=== PATIENT | female | born 1995 | race African-American/Black ===

== ENCOUNTER 2020-04-02 15:18 | Emergency (ER) | payer BC, SELFPAY ==
[2020-04-02 15:18] VITALS: BP 125/72; PULSE 102; RESP 20; TEMP 36.9; O2SAT 100
--- NOTE | 2020-04-02 16:07 | ED.FEMALEGU ---
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 Stated complaint: pelvic pain Time Seen by Provider: 04/02/20 15:55 Source: patient Mode of arrival: ambulatory Limitations: no limitations History of Present Illness HPI Narrative: Patient is a 24-year-old female who presents to emergency department for evaluation of pelvic pain bilaterally that began last night noting aching pain to the bilateral adnexa worse with activity with some associated nausea and had similar occurrence in the past seeing her specialist about this patient had been treated for bacterial vaginosis and yeast infection and notes no vaginal complaints at this time does note frequency of urination and some low back pain. Patient denies any URI symptoms or other complaints presents per private vehicle and has not taken anything for her symptoms Related Data Allergies Allergy/AdvReac Type Severity Reaction Status Date / Time ibuprofen Allergy Mild Other Verified 10/17/17 02:55 Review of Systems Review of Systems: All systems reviewed & are unremarkable except as noted in HPI and below PMFSH Social History Social History (Updated 04/02/20 @ 16:09 by Vickey Casas PA-C) Smoking status: Never smoker Gender identity (if verbalized by the patient): Female Exam Narrative: Exam Narrative: GENERAL: Well-appearing, obese, and in no acute distress. HEAD: Normocephalic, atraumatic. EYES: PERRLA and EOMI. ENT: Nares clear, no rhinorrhea or epistaxis. Mucous membranes moist. CHEST: Clear to auscultation. No respiratory distress. No wheezes rales or rhonchi HEART: Regular rate and rhythm. No murmur heard. Normal peripheral pulses. ABDOMEN: Soft, pain in the lower pelvic region on palpation, nondistended EXTREMITIES: Normal range of motion. No edema. SKIN: Warm, dry, no rash. NEURO: No focal deficits. Alert and oriented x3. PSYCH: Normal mood and affect. Course Course Emergency Course: Patient medicated in the emergency department aware of case findings treatment plan and diagnosis agreeing to treatment plan and will follow with gynecology Vital Signs Vital signs: Vital Signs Temperature 98.5 F 04/02/20 15:18 Pulse Rate 102 H 04/02/20 15:18 Respiratory Rate 20 04/02/20 15:18 Blood Pressure 125/72 04/02/20 15:18 Pulse Oximetry 100 04/02/20 15:18 Temperature 98.5 F 04/02/20 15:18 Pulse Rate 102 H 04/02/20 15:18 Respiratory Rate 20 04/02/20 15:18 Blood Pressure 125/72 04/02/20 15:18 Pulse Oximetry 100 04/02/20 15:18 MDM - Female Genitourinary MDM Narrative Medical decision making narrative: Patient aware of case findings treatment plan and diagnosis agreeing to follow with gynecology patient is afebrile nontoxic-appearing no distress no high risk changes in the blood work. Patient felt appropriate for outpatient reevaluation agreeing to follow-up as directed Lab Data Result diagrams: 04/02/20 16:27 04/02/20 16:27 Labs: Lab Results 04/02/20 04/02/20 04/02/20 Range/Units 16:27 16:27 16:29 WBC 9.5 (4.5-10.0) K/mm3 RBC 5.47 H (4.2-5.4) M/mm3 Hgb 10.0 L (12.0-15.0) g/dL Hct 35.8 L (37.0-47.0) % MCV 65.4 L (80-100) fl MCH 18.3 L (26-34) pg MCHC 27.9 L (32-36) g/dl RDW 22.2 H (11.5-14.5) % Plt Count 300 (150-375) k/mm3 MPV TNP Immature Gran % (Auto) 0.1 (0-0.5) % Neut % (Auto) 62.9 (45.5-73.1) % Lymph % (Auto) 26.1 (18.3-44.2) % Hancock % (Auto) 9.5 H (2.6-8.5) % Eos % (Auto) 1.2 (0-4.4) % Baso % (Auto) 0.2 (0.2-1.2) % Lymph # (Auto) 2.47 (0.9-3.2) K/mm3 Hancock # (Auto) 0.9 H (0.1-0.6) K/mm3 Eos # (Auto) 0.1 (0-0.3) K/mm3 Baso # (Auto) 0.0 (0.0-0.1) K/mm3 Abs Immat Gran (auto) 0.01 (0.00-0.031) K/mm3 Absolute Neuts (auto) 6.0 (1.3-6.7) K/mm3 Absolute Nucleated RBC 0.0 (0.0-0.012) K/mm3 Nucleated RBC % 0.0 (0.0-0.2) % Platelet Estimate Adequate (Adequate) %
[2020-04-02] MEDS: SODIUM CHLORIDE 0.9% IV 1,000 ML 999 ML IV CONT (16:25)
[2020-04-02 16:37] LABS: Basophils Percent Auto 0.2 % (0.2-1.2); Eosinophils Absolute Auto 0.1 K/mm3 (0-0.3); Eosinophils Percent Auto 1.2 % (0-4.4); Hematocrit 35.8 % (37.0-47.0); Immature Granulocyte Absolute 0.01 K/mm3 (0.00-0.031); Immature Granulocyte Percent A 0.1 % (0-0.5); Immature Platelet Fraction Pct 6.6 % (0.9-11.2); Lymphocytes Absolute Auto 2.47 K/mm3 (0.9-3.2); Lymphocytes Percent Auto 26.1 % (18.3-44.2); Mean Corpuscular HGB Conc 27.9 g/dl (32-36); Mean Corpuscular Hemoglobin 18.3 pg (26-34); Mean Corpuscular Volume 65.4 fl (80-100); Monocytes Absolute Auto 0.9 K/mm3 (0.1-0.6); Monocytes Percent Auto 9.5 % (2.6-8.5); Neutrophils Percent Auto 62.9 % (45.5-73.1); Platelet Count Result 300 k/mm3 (150-375); Red Blood Count 5.47 M/mm3 (4.2-5.4); Red Cell Distribution Width 22.2 % (11.5-14.5); White Blood Count 9.5 K/mm3 (4.5-10.0)
[2020-04-02 16:39] LABS: Add Urine Microscopic? YES; Appearance Urine Cloudy (Clear); Bacteria Urine Trace /hpf; Bilirubin Urine Negative (Negative); Blood Urine Negative (Negative); Color Urine Yellow (Yellow); Glucose Urine UA Negative (Negative); Ketones Urine Negative (Negative); Leukocyte Esterase Ur Negative LEU/UL (Negative); Mucus Urine Moderate /lpf; Nitrate Urine Negative (Negative); Protein Urine Negative (Negative); RBC Urine 0-2 /hpf (0-2); Specific Grav Ur 1.028 (1.001-1.035); Squamous Epithelial Cell Urine Many /hpf (Few); Urobilinogen Urine Negative mg/dL (<2.0); WBC Urine 0-3 /hpf
[2020-04-02 16:47] LABS: Alanine Aminotransferase 14 U/L (4-35); Alkaline Phosphatase 72 U/L (38-126); Anion Gap 9 mmol/L (8-16); Aspartate Amino Transferase 20 U/L (14-36); Bilirubin,Total 0.2 mg/dL (0.2-1.3); Blood Urea Nitrogen 12 mg/dL (7-17); Calcium 9.5 mg/dL (8.4-10.2); Carbon Dioxide 25 mmol/L (22-30); Chloride 103 mmol/L (98-107); Estimated CRCL calculation 147 ml/min; Estimated Glomerular Filt Rate > 60; Glucose 99 mg/dL (65-105); Potassium 3.9 mmol/L (3.4-5.0); Sodium 137 mmol/L (137-145)
[2020-04-02 16:52] LABS: Anisocytosis 3+ (NORMAL); Hypochromasia 1+ (NORMAL); Platelet Estimate Adequate (Adequate)
[2020-04-02 17:50] VITALS: BP 124/67; PULSE 89; RESP 14; O2SAT 99
== END 2020-04-02 17:56 | disposition home or self-care (01) ==
PROVIDERS: Emergency Medicine Emergency Medical Services; Emergency Provider Emergency Medicine
DX: R10.2 Pelvic and perineal pain (principal)
CPT/HCPCS: 36415; 80053; 81001; 85025; 85055; 96361; 96365; 99284; J0131; J7030

== ENCOUNTER 2020-05-07 14:52 | Emergency (ER) | payer BC, SELFPAY ==
[2020-05-07 15:07] VITALS: BP 146/116; PULSE 85; RESP 16; TEMP 36.1; O2SAT 100
[2020-05-07 15:40] VITALS: BP 118/72; PULSE 70
[2020-05-07 15:41] VITALS: BP 116/71; PULSE 80
[2020-05-07 15:42] VITALS: BP 113/57; PULSE 89
--- NOTE | 2020-05-07 15:45 | ED.FEMALEGU ---
HPI - Female Genitourinary General Chief complaint: Vaginal Bleeding Stated complaint: poss preg/vb Time Seen by Provider: 05/07/20 15:05 History of Present Illness HPI Narrative: Patient is a 24-year-old female who presents ER with vaginal bleeding. Patient's LMP was 1 month ago. She began having vaginal bleeding 2 days ago and she reports it is heavier than normal. She has had large clots come out which is not usual for her but she has been bleeding persistently through pads every 10 minutes. No lightheadedness or lower abdominal pain. No chest pain or shortness of breath. She does report taking a test 2 weeks ago and it had a very faint line on it. She took no additional test. Additionally patient had a recent ultrasound in the last month that showed a large amount of fibroids within her uterus. She reports she does not use control and does have unprotected sex. No vaginal discharge. Patient also reports shortly before starting her period she had an episode of extreme dizziness is associated with nausea and vomiting. That has since slowed down and not recurred. Related Data Home Medications Medication Instructions Recorded Confirmed No Home Medications 05/07/20 05/07/20 Allergies Allergy/AdvReac Type Severity Reaction Status Date / Time ibuprofen Allergy Mild Other Verified 05/07/20 15:32 Review of Systems Review of Systems: All systems reviewed & are unremarkable except as noted in HPI and below ENT: Reports dizziness, Denies nasal congestion and Denies sore throat Gastrointestinal: Gastrointestinal: Denies abdominal pain, Denies diarrhea, Reports nausea and Reports vomiting Genitourinary: Genitourinary: Reports abnormal vaginal bleeding, Denies nocturia, Denies dysuria and Denies vaginal discharge [facility] Past Medical History Medical History (Updated 05/07/20 @ 16:55 by George Caputo MD) Polycystic ovarian syndrome Uterine fibroid Surgical History Surgical History (Updated 05/07/20 @ 15:51 by George Caputo MD) No history of previous surgery Social History Social History (Updated 04/02/20 @ 16:09 by Vickey Casas PA-C) Smoking status: Never smoker Gender identity (if verbalized by the patient): Female Exam Narrative: Exam Narrative: GENERAL: Well-appearing, obese, and in no acute distress. HEAD: Normocephalic, atraumatic. CHEST: Clear to auscultation. No respiratory distress. HEART: Regular rate and rhythm. Normal peripheral pulses. ABDOMEN: Soft, nontender, nondistended. Pelvic: Normal external genitalia. Small amount of dark blood within the vaginal vault without large clot. Cervix normal appearance without persistent oozing/bleeding. EXTREMITIES: Normal range of motion. No edema. NEURO: Alert and oriented x3. PSYCH: Normal mood and affect. Course Course Emergency Course: Patient given IV fluid. Encouraged follow-up with primary training assistant. Should take ibuprofen 3 times daily and also start iron supplementation. Vital Signs Vital signs: Vital Signs Temperature 96.9 F L 05/07/20 15:07 Pulse Rate 85 05/07/20 15:07 Respiratory Rate 16 05/07/20 15:07 Blood Pressure 146/116 H 05/07/20 15:07 Pulse Oximetry 100 05/07/20 15:07 Temperature 96.9 F L 05/07/20 15:07 Pulse Rate 89 05/07/20 15:42 Respiratory Rate 16 05/07/20 15:07 Blood Pressure 113/57 L 05/07/20 15:42 Pulse Oximetry 100 05/07/20 15:07 MDM - Female Genitourinary Lab Data Result diagrams: 05/07/20 15:51 05/07/20 15:51 Labs: Lab Results 05/07/20 05/07/20 Range/Units 15:51 15:51 WBC 7.9 (4.5-10.0) K/mm3 RBC 5.13 (4.2-5.4) M/mm3 Hgb 9.1 L (12.0-15.0) g/dL Hct 33.1 L (37.0-47.0) % MCV 64.5 L (80-100) fl MCH 17.7 L (26-34) pg MCHC 27.5 L (32-36) g/dl RDW 21.1 H (11.5-14.5) % Plt Count 325 (150-375) k/mm3 MPV Not Reportable Immature Gran % (Auto) 0.6 H (0-0.5) %
[2020-05-07 16:00] LABS: Basophils Percent Auto 0.4 % (0.2-1.2); Eosinophils Absolute Auto 0.1 K/mm3 (0-0.3); Eosinophils Percent Auto 1.5 % (0-4.4); Hematocrit 33.1 % (37.0-47.0); Hemoglobin 9.1 g/dL (12.0-15.0); Immature Granulocyte Absolute 0.05 K/mm3 (0.00-0.031); Immature Granulocyte Percent A 0.6 % (0-0.5); Immature Platelet Fraction Pct 5.4 % (0.9-11.2); Lymphocytes Absolute Auto 2.22 K/mm3 (0.9-3.2); Mean Corpuscular HGB Conc 27.5 g/dl (32-36); Mean Corpuscular Hemoglobin 17.7 pg (26-34); Mean Corpuscular Volume 64.5 fl (80-100); Monocytes Absolute Auto 0.7 K/mm3 (0.1-0.6); Monocytes Percent Auto 9.3 % (2.6-8.5); Neutrophils Absolute Auto 4.8 K/mm3 (1.3-6.7); Neutrophils Percent Auto 60.2 % (45.5-73.1); Platelet Count Result 325 k/mm3 (150-375); Red Blood Count 5.13 M/mm3 (4.2-5.4); Red Cell Distribution Width 21.1 % (11.5-14.5); White Blood Count 7.9 K/mm3 (4.5-10.0)
[2020-05-07 16:10] LABS: Anion Gap 5 mmol/L (8-16); Blood Urea Nitrogen 10 mg/dL (7-17); Calcium 8.7 mg/dL (8.4-10.2); Carbon Dioxide 26 mmol/L (22-30); Chloride 105 mmol/L (98-107); Estimated CRCL calculation 166 ml/min; Estimated Glomerular Filt Rate > 60; Glucose 84 mg/dL (65-105); Sodium 136 mmol/L (137-145)
[2020-05-07 16:14] LABS: Platelet Estimate Adequate (Adequate)
[2020-05-07 16:15] LABS: Anisocytosis 2+ (NORMAL); Hypochromasia 2+ (NORMAL)
--- NOTE | 2020-05-07 16:45 | PC.NURSE ---
Dr. Caputo at bedside for pelvic exam with this RN in attendance. Pt tolerated procedure well with minimal bleeding or pain.
[2020-05-07] MEDS: SODIUM CHLORIDE 0.9% IV 1,000 ML 999 ML IV CONT (16:53)
== END 2020-05-07 17:27 | disposition home or self-care (01) ==
PROVIDERS: Emergency Provider Emergency Medicine; PCP Internal Medicine Gastroenterology
DX: N92.0 Excessive and frequent menstruation with regular cycle (principal); E28.2 Polycystic ovarian syndrome; D25.9 Leiomyoma of uterus, unspecified
CPT/HCPCS: 36415; 80048; 81025; 85025; 85055; 96360; 99283; J7030

== ENCOUNTER 2020-09-10 02:20 | Emergency (ER) | payer BC, SELFPAY ==
[2020-09-10 02:26] VITALS: PULSE 110; RESP 20; TEMP 36.7; O2SAT 100
[2020-09-10 02:39] VITALS: BP 130/88
--- NOTE | 2020-09-10 02:55 | ED.URI ---
HPI - URI/Sore Throat General Chief Complaint: Dental/Oral Stated Complaint: my throat has a lump in it. i think it's a rxn Time Seen by Provider: 09/10/20 02:33 Source: patient Mode of arrival: ambulatory Limitations: no limitations History of Present Illness HPI Narrative: This patient is a 25 year old female who presents for evaluation of throat pain. She states this morning she noticed a tinkle in her throat. Tonight prior to arrival she reports she starting having some discomfort with swallowing , and she noticed some white spots on throat. She denies fever, chills, nausea, vomiting, or cough. She denies runny nose or congestion. Related Data Allergies Allergy/AdvReac Type Severity Reaction Status Date / Time No Known Allergies Allergy Verified 09/10/20 02:31 Review of Systems Review of Systems: All systems reviewed & are unremarkable except as noted in HPI and below PMFSH Past Medical History Medical History (Updated 09/10/20 @ 03:58 by Valerie Rodriguez MD) Polycystic ovarian syndrome Uterine fibroid Surgical History Surgical History (Updated 05/07/20 @ 15:51 by George Caputo MD) No history of previous surgery Social History Social History (Updated 04/02/20 @ 16:09 by Vickey Casas PA-C) Smoking status: Never smoker Gender identity (if verbalized by the patient): Female Exam Const: General: no acute distress and alert Orientation/consciousness: patient oriented x3 HENMT: Head: normocephalic and atraumatic Ears: external ears normal and TM's normal bilaterally General nose exam: No nasal polyps present Face and sinus: face symmetric Mouth: Yes lip normal, Yes tongue normal and Yes moist mucous membranes Throat: uvula midline and abnormal tonsil bilateral erythema and exudates Eyes: EOM: EOMs intact bilaterally Neck: Neck: normal visual inspection Chest: Chest palpation & inspection: normal inspection of the chest Resp: Effort & Inspection: normal respiratory effort and no retractions Auscultation: clear to auscultation bilaterally Cardio: Rate: regular rate Rhythm: regular rhythm Heart sounds: no murmurs GI: GI Palp: Yes Soft to palpation, No Tenderness to palpation present (GI) and No Guarding due to palpation present (GI) Auscultation: normal bowel sounds Skin: General skin exam: normal color Rashes: no rashes Neuro: General: patient oriented x3 and moves all extremities Psych: Mental Status: mental status grossly normal Affect: normal affect Course Reevaluation(s) Reevaluation #1: I have discussed with patient that test are negative. She did have exudates mild erythema and swelling. Uvula is midline and normal Date: 09/10/20 Time: 03:43 Vital Signs Vital signs: Vital Signs Temperature 98.1 F 09/10/20 02:26 Pulse Rate 110 H 09/10/20 02:26 Respiratory Rate 20 09/10/20 02:26 Pulse Oximetry 100 09/10/20 02:26 Temperature 98.1 F 09/10/20 02:26 Pulse Rate 110 H 09/10/20 02:26 Respiratory Rate 20 09/10/20 02:26 Blood Pressure 130/88 09/10/20 02:39 Pulse Oximetry 100 09/10/20 02:26 MDM - URI/Sore Throat Lab Data Labs: Lab Results 09/10/20 Range/Units 03:06 Monoscreen Negative (Negative) Strep Screen Presumptive Negative *(Reference Range: Negative)* Discharge Plan Discharge Clinical Impression: Acute tonsillitis Patient Disposition: Home, Self-Care Condition: Stable Instructions: Antibiotic Form, Tonsillitis (ED) Additional Instructions: REturn to ER if your symptoms worsen. Prescriptions: New azithromycin 250 mg tablet See Rx Instructions .ROUTE .COMPLEX Qty: 6 RF: 0 ibuprofen 600 mg tablet 600 mg PO Q6H PRN (Reason: pain) Qty: 14 RF: 0 No Action ferrous sulfate 325 mg (65 mg iron) tablet 325 mg PO DAILY Qty: 30 RF: 0 Follow-up/Referrals: Jcarlos,Lawson Luciano MD [Primary Care Provider]
[2020-09-10] MEDS: IBUPROFEN 400 MG TABLET 800 MG PO (03:01)
[2020-09-10 03:38] LABS: Monoscreen Negative (Negative); Negative Monotest Control Negative (Negative); Positive Monotest Control Positive (Positive)
[2020-09-10] MEDS: DEXAMETHASONE SOD PHOS INJ 4 MG/ML VIAL 10 MG IM (03:48)
== END 2020-09-10 04:09 | disposition home or self-care (01) ==
PROVIDERS: Emergency Provider General Practice; PCP Internal Medicine Gastroenterology
DX: J03.90 Acute tonsillitis, unspecified (principal); E28.2 Polycystic ovarian syndrome
CPT/HCPCS: 36415; 86308; 87081; 87880; 96372; 99283; A9270; J1100

== ENCOUNTER 2020-10-29 06:31 | Emergency (ER) | payer BC, SELFPAY ==
[2020-10-29 06:40] VITALS: BP 139/78; PULSE 101; RESP 16; TEMP 36.9; O2SAT 100
--- NOTE | 2020-10-29 06:45 | ED.GENADULT ---
HPI - General Adult General Chief complaint: Dental/Oral Stated complaint: Sore throat, white patches Time Seen by Provider: 10/29/20 06:43 History of Present Illness HPI narrative: Patient is a 25-year-old female who presents ER with sore throat. Ongoing for the last day. No fevers chills or sweats. No difficulty breathing or swallowing. Noticed patches on her tonsils. Had similar symptoms in August. Swab was negative for strep at that time and culture did not grow out. She did however receive some azithromycin. Related Data Allergies Allergy/AdvReac Type Severity Reaction Status Date / Time No Known Allergies Allergy Verified 09/10/20 02:31 Review of Systems Constitutional: Constitutional: Denies chills, Denies fever(s) and Denies weakness ENT: Denies dysphagia, Denies nasal congestion and Reports sore throat Respiratory: Respiratory: Denies cough and Denies dyspnea PMFSH Past Medical History Medical History (Updated 10/29/20 @ 06:56 by George Caputo MD) Polycystic ovarian syndrome Uterine fibroid Surgical History Surgical History (Updated 05/07/20 @ 15:51 by George Caputo MD) No history of previous surgery Social History Social History (Updated 04/02/20 @ 16:09 by Vickey Casas PA-C) Smoking status: Never smoker Gender identity (if verbalized by the patient): Female Exam Narrative: Exam Narrative: GENERAL: Well-appearing, well-nourished, and in no acute distress. HEAD: Normocephalic, atraumatic. ENT: Mucous membranes moist. Mild pharyngeal erythema with 2+ tonsils with exudates. Uvula midline and nonedematous. NECK: Small lymphadenopathy left anterior cervical chain is mildly tender. NEURO: Alert and oriented x3. PSYCH: Normal mood and affect. Course Course Emergency Course: strep negative. viral tonsillitis. d/c. Medical Decision Making Lab Data Labs: Strep Screen Presumptive Negative *(Reference Range: Negative)* Discharge Plan Discharge Clinical Impression: Acute viral tonsillitis Patient Disposition: Home, Self-Care Condition: Stable Instructions: Tonsillitis (ED) Additional Instructions: Return to the ER if you cannot breathe, you cannot swallow, you have fever over 100.4 ?F, you have additional concerns. Ear infections are likely due to a viral illness and will clear with time. Purchase [id number] lozenges for sore throat. Prescriptions: No Action ferrous sulfate 325 mg (65 mg iron) tablet 325 mg PO DAILY Qty: 30 RF: 0 azithromycin 250 mg tablet See Rx Instructions .ROUTE .COMPLEX Qty: 6 RF: 0 ibuprofen 600 mg tablet 600 mg PO Q6H PRN (Reason: pain) Qty: 14 RF: 0 Follow-up/Referrals: Jcarlos,Lawson Luciano MD [Primary Care Provider] - 1 Week
[2020-10-29 07:09] VITALS: BP 130/74; PULSE 88; RESP 18; O2SAT 100
== END 2020-10-29 07:14 | disposition home or self-care (01) ==
LOC: ANHED 06:57
PROVIDERS: Emergency Provider Emergency Medicine; PCP Internal Medicine Gastroenterology
DX: J03.90 Acute tonsillitis, unspecified (principal); E28.2 Polycystic ovarian syndrome
CPT/HCPCS: 87081; 87880; 99283

== ENCOUNTER 2020-11-25 22:30 | Emergency (ER) | payer BC, SELFPAY ==
--- NOTE | ~2020-11-25 | CT_ITS ---
EXAMINATION: CT abdomen pelvis w con DATE: 11/26/2020 01:05 INDICATION: Upper abdominal pain TECHNIQUE: Computed tomography (CT) of the abdomen and pelvis was performed without intravenous contr ast. Automated exposure control and iterative reconstruction technique were employed. Exam dose: 199 0.01 mGy-cm total exam DLP. COMPARISON: None. FINDINGS: The lung bases are clear. Heart size is normal. No pericardial or pleural effusion. No hepatic, splenic, pancreatic, and adrenal or renal space-occupying mass lesion. No bile duct or pa ncreatic duct dilatation. The gallbladder is contracted. No urinary tract calculus or hydroureteronephrosis. Enlarged lobular uterus consistent with fibroid change. The urinary bladder is unremarkable. Normal caliber of the abdominal aorta. No intraperitoneal or retroperitoneal or pelvic mass lesion or adenopathy or ascites. Normal appendix. No bowel obstruction. Included skeletal structures are unremarkable. IMPRESSION: Enlarged fibroid uterus Normal appendix Reviewed, dictated and finalized at [facility] Reviewed, dictated and finalized at [facility].
[2020-11-25 22:51] VITALS: BP 144/88; PULSE 120; RESP 20; TEMP 36.2; O2SAT 100
[2020-11-25 23:17] LABS: Basophils Percent Auto 0.2 % (0.2-1.2); Eosinophils Absolute Auto 0.1 K/mm3 (0-0.3); Eosinophils Percent Auto 1.3 % (0-4.4); Hematocrit 32.4 % (37.0-47.0); Hemoglobin 8.5 g/dL (12.0-15.0); Immature Granulocyte Absolute 0.03 K/mm3 (0.00-0.031); Immature Granulocyte Percent A 0.3 % (0-0.5); Immature Platelet Fraction Pct 6.5 % (0.9-11.2); Lymphocytes Absolute Auto 2.74 K/mm3 (0.9-3.2); Lymphocytes Percent Auto 31.7 % (18.3-44.2); Mean Corpuscular HGB Conc 26.2 g/dl (32-36); Mean Corpuscular Hemoglobin 15.9 pg (26-34); Mean Corpuscular Volume 60.8 fl (80-100); Monocytes Percent Auto 12.1 % (2.6-8.5); Neutrophils Absolute Auto 4.7 K/mm3 (1.3-6.7); Neutrophils Percent Auto 54.4 % (45.5-73.1); Nucleated Red Blood Cells Perc 0.2 % (0.0-0.2); Platelet Count Result 346 k/mm3 (150-375); Red Blood Count 5.33 M/mm3 (4.2-5.4); White Blood Count 8.6 K/mm3 (4.5-10.0)
[2020-11-25 23:24] LABS: Alanine Aminotransferase 11 U/L (4-35); Albumin Level 3.8 g/dL (3.5-5.1); Alkaline Phosphatase 80 U/L (38-126); Anion Gap 4 mmol/L (8-16); Aspartate Amino Transferase 17 U/L (14-36); Bilirubin,Total < 0.1 mg/dL (0.2-1.3); Blood Urea Nitrogen 11 mg/dL (7-17); Calcium 8.6 mg/dL (8.4-10.2); Carbon Dioxide 28 mmol/L (22-30); Chloride 105 mmol/L (98-107); Estimated CRCL calculation 142 ml/min; Estimated Glomerular Filt Rate > 60; Glucose 97 mg/dL (65-105); Lipase 56 U/L (23-300); Sodium 137 mmol/L (137-145)
[2020-11-25 23:32] LABS: Hypochromasia 2+ (NORMAL); Large Platelets Present; Ovalocytes 1+ (NORMAL); Platelet Estimate Adequate (Adequate)
[2020-11-25 23:34] LABS: Anisocytosis 1+ (NORMAL)
--- NOTE | 2020-11-26 00:15 | ED.ABDPAIN ---
HPI - Abdominal Pain General Chief Complaint: Abdominal Pain Stated Complaint: stomach pain, nauseated, dizzy, breast pain Time Seen by Provider: 11/25/20 23:46 Source: patient Mode of arrival: ambulatory Limitations: no limitations History of Present Illness HPI narrative: Patient is 25 years old -[place] female presents with upper abdominal pain for the last 2 days, intermittent, sharp, tightness, no radiation, denies any aggravating or relieving factors, associated with intermittent nausea. Patient denies any fever, chills, vomiting, urinary symptoms, chest pain, shortness of breath, back pain. Patient on iron supplement. Does not smoke drinks occasionally and does not use marijuana. Related Data Allergies Allergy/AdvReac Type Severity Reaction Status Date / Time No Known Allergies Allergy Verified 11/25/20 22:55 Review of Systems Review of Systems: Narrative: CONSTITUTIONAL: Denies fever, chills, or sweats. EYES: Denies visual changes, redness, or discharge. ENT: Denies rhinorrhea, congestion, sore throat, or otalgia. CARDIOVASCULAR: Denies chest pain, palpitations, or edema. RESPIRATORY: Denies cough or dyspnea. GASTROINTESTINAL: Denies abdominal pain, nausea, vomiting, or diarrhea. GENITOURINARY: Denies dysuria or hematuria. SKIN: Denies rash or itching. MUSCULOSKELETAL: Denies back pain, joint pain, or myalgia. NEUROLOGIC: Denies headache, numbness, or weakness. PSYCHIATRIC: Denies anxiety or depression. PMFSH Past Medical History Medical History Polycystic ovarian syndrome Uterine fibroid Surgical History Surgical History No history of previous surgery Social History Social History Smoking status: Never smoker Gender identity (if verbalized by the patient): Female Exam Narrative: Exam Narrative: General appearance: Well-developed, well-nourished Skin: Normal color Head: Normocephalic, nontraumatic Eyes: Clear conjunctiva ENT: Oropharynx normal, ears normal, nose normal Neck: Supple, nontender Chest and respiratory: Airway patent, no respiratory distress, no accessory muscle use Heart: Regular rate/rhythm Abdomen: Soft, mild epigastric tenderness, no guarding or rebound, no organomegaly, quiet bowel sounds Vascular: Normal peripheral pulses, normal capillary refill. 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, no gross motor deficit Course Course Emergency Course: Stable Vital Signs Vital signs: Vital Signs Temperature 36.2 C L 11/25/20 22:51 Pulse Rate 120 H 11/25/20 22:51 Respiratory Rate 20 11/25/20 22:51 Blood Pressure 144/88 H 11/25/20 22:51 Pulse Oximetry 100 11/25/20 22:51 Temperature 36.2 C L 11/25/20 22:51 Pulse Rate 120 H 11/25/20 22:51 Respiratory Rate 20 11/25/20 22:51 Blood Pressure 144/88 H 11/25/20 22:51 Pulse Oximetry 100 11/25/20 22:51 MDM - Abdominal Pain MDM Narrative Medical decision making narrative: Patient presents with epigastric pain Labs, CT abdomen pelvis with IV contrast, UA, IV fluid ordered. Patient declined to take any pain medication in the emergency room. Differential Diagnosis Differential diagnosis: Likely abdominal pain, constipation, diverticulitis, gastroenteritis, pancreatitis and other (Cholecystitis) Lab Data Result diagrams: 11/25/20 23:02 11/25/20 23:02 Labs: Lab Results 11/25/20 11/25/20 11/26/20 Range/Units 23:02 23:02 00:29 WBC 8.6 (4.5-10.0) K/mm3 RBC 5.33 (
[2020-11-26] MEDS: ONDANSETRON INJ 4 MG/2 ML VIAL IV PUSH (00:29)
[2020-11-26] MEDS: SODIUM CHLORIDE 0.9% IV 1,000 ML 999 ML IV CONT (00:29)
[2020-11-26 00:42] LABS: Add Urine Microscopic? YES; Appearance Urine Cloudy (Clear); Bacteria Urine Trace /hpf; Bilirubin Urine Negative (Negative); Blood Urine Negative (Negative); Color Urine Yellow (Yellow); Glucose Urine UA Negative (Negative); Ketones Urine Negative (Negative); Leukocyte Esterase Ur Trace LEU/UL (Negative); Mucus Urine Heavy /lpf; Nitrate Urine Negative (Negative); Protein Urine 1+ mg/dL (Negative); RBC Urine 0-2 /hpf (0-2); Specific Grav Ur 1.028 (1.001-1.035); Squamous Epithelial Cell Urine Many /hpf (Few); Urobilinogen Urine Negative mg/dL (<2.0)
[2020-11-26 02:10] VITALS: BP 124/68; PULSE 95; RESP 18; O2SAT 100
== END 2020-11-26 02:11 | disposition home or self-care (01) ==
PROVIDERS: Emergency Provider Emergency Medicine; PCP Physician Assistant
DX: R10.13 Epigastric pain (principal); D50.9 Iron deficiency anemia, unspecified; E28.2 Polycystic ovarian syndrome
CPT/HCPCS: 36415; 74177; 80053; 81001; 81025; 83690; 85025; 85055; 96361; 96374; 99284; J2405; J7030; Q9967

== ENCOUNTER 2022-05-30 05:19 | Emergency (ER) | payer BC, SELFPAY ==
[2022-05-30 05:33] VITALS: BP 130/96; PULSE 99; RESP 18; TEMP 36.6; O2SAT 100
--- NOTE | 2022-05-30 07:53 | ED.GENADULT ---
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 Positive dyspareunia, negative discharge, negative hematuria or painful urination. Patient is monogamous with a single partner but they had broken up for a long time and recently started having sex again. Patient also admits recurrent BV which she normally gets after her cycle. Related Data Allergies Allergy/AdvReac Type Severity Reaction Status Date / Time No Known Allergies Allergy Verified 05/30/22 07:42 Review of Systems Review of Systems: CONSTITUTIONAL: Denies fever, chills, or sweats. EYES: Denies visual changes, redness, or discharge. ENT: Denies rhinorrhea, congestion, sore throat, or otalgia. CARDIOVASCULAR: Denies chest pain, palpitations, or edema. RESPIRATORY: Denies cough or dyspnea. GASTROINTESTINAL: Denies abdominal pain, nausea, vomiting, or diarrhea. GENITOURINARY: Denies dysuria or hematuria. SKIN: Denies rash or itching. MUSCULOSKELETAL: Denies back pain, joint pain, or myalgia. NEUROLOGIC: Denies headache, numbness, or weakness. PSYCHIATRIC: Denies anxiety or depression. PMFSH Past Medical History Medical History Polycystic ovarian syndrome Uterine fibroid Surgical History Surgical History No history of previous surgery Social History Social History Smoking status: Never smoker Gender identity (if verbalized by the patient): Female Exam Narrative: GENERAL: Well-appearing, well-nourished, and in no acute distress. HEAD: Normocephalic, atraumatic. EYES: PERRLA and EOMI. ENT: Nares clear, no rhinorrhea or epistaxis. Mucous membranes moist. NECK: Supple. CHEST: Clear to auscultation. No respiratory distress. HEART: Regular rate and rhythm. No murmur heard. Normal peripheral pulses. ABDOMEN: Soft, nontender, nondistended, normal active bowel sounds. EXTREMITIES: Normal range of motion. No edema. SKIN: Warm, dry, no rash. NEURO: No focal deficits. Alert and oriented x3. PSYCH: Normal mood and affect. Course Vital Signs Vital signs: Vital Signs Temperature 98 F 05/30/22 05:33 Pulse Rate 99 05/30/22 05:33 Respiratory Rate 18 05/30/22 05:33 Blood Pressure 130/96 H 05/30/22 05:33 Pulse Oximetry 100 05/30/22 05:33 Oxygen Delivery Room Air 05/30/22 05:33 Temperature 98 F 05/30/22 05:33 Pulse Rate 99 05/30/22 05:33 Respiratory Rate 18 05/30/22 05:33 Blood Pressure 130/96 H 05/30/22 05:33 Pulse Oximetry 100 05/30/22 05:33 Oxygen Delivery Room Air 05/30/22 05:33 Medical Decision Making MDM Narrative Medical decision making narrative: After patient was initially evaluated there were multiple ambulances bringing critical patients in including a cardiac arrest. Upon stabilizing this patient's PE we found that this patient had gotten herself dressed and walked out of the ER. She no longer wishes to obtain treatment here. We have explained the risks of leaving AMA including worsening symptoms, disability, . Patient is of somebody in keeping her against her will would be unlawful. We have encouraged her to return anytime to complete the work-up we have started. Vital Signs Vital Signs: Vital Signs Temperature 98 F 05/30/22 05:33 Pulse Rate 99 05/30/22 05:33 Respiratory Rate 18 05/30/22 05:33 Blood Pressure 130/96 H 05/30/22 05:33 Pulse Oximetry 100 05/30/22 05:33 Oxygen Delivery Room Air 05/30/22 05:33 Temperature 98 F 05/30/22 05:33 Pulse Rate 99 05/30/22 05:33 Respiratory Rate 18 05/30/22 05:33 Blood Pressure 130/96 H 05/30/22 05:33 Pulse Oximetry 100 05/30/22 05:33 Oxygen Delivery Room Air 1
[2022-05-30 08:34] LABS: Appearance Urine Cloudy (Clear); Bilirubin Urine 1+ (Negative); Blood Urine Trace-intact (Negative); Glucose Urine UA Negative (Negative); Ketones Urine Negative (Negative); Leukocyte Esterase Ur 3+ LEU/UL (Negative); Nitrate Urine Negative (Negative); Protein Urine 1+ mg/dL (Negative); Specific Grav Ur >= 1.030 (1.001-1.035); Urobilinogen Urine 0.2 mg/dL (<2.0)
[2022-05-30 08:35] LABS: Bacteria Urine Trace /hpf; Mucus Urine Moderate /lpf; RBC Urine 21-50 /hpf (0-2); Squamous Epithelial Cell Urine Many /hpf (Few); WBC Urine 51-75 /hpf
[2022-05-30 08:36] LABS: Add Urine Microscopic? YES; Color Urine Yellow (Yellow)
== END 2022-05-30 09:10 | disposition left against medical advice (07) ==
PROVIDERS: Emergency Provider Emergency Medicine; PCP Physician Assistant
DX: R10.2 Pelvic and perineal pain (principal); E28.2 Polycystic ovarian syndrome
CPT/HCPCS: 81001; 81025; 87086; 87088; 99283

== ENCOUNTER 2024-01-06 09:32 | Emergency (ER) | payer SELFPAY ==
[2024-01-06 09:35] VITALS: BP 128/61; PULSE 102; RESP 18; TEMP 36.3; O2SAT 100
--- NOTE | 2024-01-06 10:15 | ED.HA ---
HPI - Headache General Chief Complaint: Headache Stated Complaint: headache x 1 week Time Seen by Provider: 01/06/24 09:40 Source: patient Mode of arrival: ambulatory Limitations: no limitations History of Present Illness HPI Narrative: Patient is a 28 y/o female who presents to the ED with c/o headache. Patient reports having a persistent headache throughout her right-sided head/neck/behind her right eye for the last 1 week. Pain was initially intermittent, now more constant. Has been taking [id number] pain medication at home with some relief. Has not taken anything for pain today. Reports photophobia, intermittent dizziness. Denies vision changes, fevers, focal weakness or numbness, syncope, nausea, vomiting. Denies history of migraines. Related Data Allergies Allergy/AdvReac Type Severity Reaction Status Date / Time No Known Allergies Allergy Verified 05/30/22 07:42 Review of Systems Review of Systems: CONSTITUTIONAL: Denies fever, chills, or sweats. ENT: See HPI CARDIOVASCULAR: Denies chest pain. RESPIRATORY: Denies dyspnea. GASTROINTESTINAL: Denies abdominal pain, nausea, vomiting. MUSCULOSKELETAL: See HPI. NEUROLOGIC: See HPI. All systems reviewed & are unremarkable except as noted in HPI and below PMFSH Past Medical History Medical History Polycystic ovarian syndrome Uterine fibroid Surgical History Surgical History No history of previous surgery Social History Social History Smoking status: Never smoker Gender identity (if verbalized by the patient): Female Exam Narrative: GENERAL: Well appearing, morbidly obese with BMI of 53.0, non-toxic, in no acute distress. HEAD: Normocephalic, atraumatic. EYES: PERRL/EOMI, conjunctiva clear. No nystagmus. NECK: No meningeal signs. RESPIRATORY: Airway patent, respirations nonlabored. Clear to auscultation bilaterally, no rales, rhonchi, wheezing. CARDIOVASCULAR: Regular rate and rhythm MUSCULOSKELETAL: Moves all extremities. No gross deformities. SKIN: Warm, dry, normal color. NEURO: A&O X3. Speech clear. Cranial nerves II-XII grossly intact. Steady gait. No ataxic movements. No focal deficits. Equal tin container straightener bilaterally. Strength 5/5 in upper and lower extremities bilaterally. PSYCHIATRIC: Appropriate mood and affect. Normal interaction. Course Vital Signs Vital signs: Vital Signs Temperature 97.4 F L 01/06/24 09:35 Pulse Rate 102 H 01/06/24 09:35 Respiratory Rate 18 01/06/24 09:35 Blood Pressure 128/61 01/06/24 09:35 Pulse Oximetry 100 01/06/24 09:35 Oxygen Delivery Room Air 01/06/24 09:35 Temperature 97.4 F L 01/06/24 09:35 Pulse Rate 78 01/06/24 12:22 Respiratory Rate 17 01/06/24 12:22 Blood Pressure 120/75 01/06/24 12:22 Pulse Oximetry 99 01/06/24 12:22 Oxygen Delivery Room Air 01/06/24 09:35 MDM - Headache MDM Narrative Medical decision making narrative: Patient presented to ED with 1 week history of headache. Vital signs are stable upon arrival. Patient's headache was not sudden in onset or maximal in severity. There are no focal neurological deficits on exam. Subarachnoid hemorrhage is felt to be unlikely at this time. There is no history of fever and neck is supple on evaluation without meningeal signs. Meningitis is felt to be unlikely. No traumatic history or signs of trauma on evaluation. No vision changes or ocular signs of acute glaucoma. Patient feeling much better after migraine cocktail. Patient's headache is felt to be benign cephalgia and reasonable for further outpatient management. Advised patient to follow with PCP for further evaluation. Given reasons to return. Patient did report hx of anemia. States she is not compliant with her iron therapy as she is supposed to. Basic laboratory studi
[2024-01-06] MEDS: KETOROLAC 30 MG/ML VIAL (*BKC) IV PUSH (11:03)
[2024-01-06] MEDS: SODIUM CHLORIDE 0.9% IV 1,000 ML 999 ML IV CONT (11:03)
[2024-01-06] MEDS: diphenhydrAMINE HCl INJ 50 MG/ML VIAL 25 MG IV PUSH (11:05)
[2024-01-06 11:07] LABS: Basophils Percent Auto 0.4 % (0.2-1.2); Eosinophils Absolute Auto 0.1 K/mm3 (0-0.3); Eosinophils Percent Auto 1.7 % (0-4.4); Hematocrit 27.1 % (37.0-47.0); Immature Granulocyte Absolute 0.03 K/mm3 (0.00-0.031); Immature Granulocyte Percent A 0.4 % (0-0.5); Immature Platelet Fraction Pct 6.3 % (0.9-11.2); Lymphocytes Absolute Auto 2.08 K/mm3 (0.9-3.2); Lymphocytes Percent Auto 28.9 % (18.3-44.2); Mean Corpuscular HGB Conc 24.4 g/dl (32-36); Mean Corpuscular Hemoglobin 13.7 pg (26-34); Mean Corpuscular Volume 56.2 fl (80-100); Monocytes Absolute Auto 0.8 K/mm3 (0.1-0.6); Monocytes Percent Auto 11.7 % (2.6-8.5); Neutrophils Absolute Auto 4.1 K/mm3 (1.3-6.7); Neutrophils Percent Auto 56.9 % (45.5-73.1); Nucleated Red Blood Cells Perc 0.7 % (0.0-0.2); Platelet Count Result 302 k/mm3 (150-375); Red Blood Count 4.82 M/mm3 (4.2-5.4); Red Cell Distribution Width 24.8 % (11.5-14.5); White Blood Count 7.2 K/mm3 (4.5-10.0)
[2024-01-06] MEDS: dexAMETHasone SOD PHOS INJ 10 MG/ML 1 ML VIAL IV PUSH (11:07)
[2024-01-06] MEDS: METOCLOPRAMIDE HCL INJ 10 MG/2 ML VIAL IV PUSH (11:07)
[2024-01-06] MEDS: ACETAMINOPHEN 500 MG TABLET 1000 MG PO (11:09)
[2024-01-06 11:15] LABS: Anion Gap 6 mmol/L (4-12); Blood Urea Nitrogen 7 mg/dL (7-17); Calcium 8.9 mg/dL (8.4-10.2); Carbon Dioxide 25 mmol/L (22-30); Chloride 105 mmol/L (98-107); Estimated CRCL calculation 161 ml/min; Estimated Glomerular Filt Rate > 60; Glucose 88 mg/dL (65-110); Potassium 4.1 mmol/L (3.4-5.0); Sodium 136 mmol/L (137-145)
[2024-01-06 12:15] LABS: Hemoglobin 6.6 g/dL (12.0-15.0)
[2024-01-06 12:16] LABS: Hypochromasia 3+; Platelet Estimate Adequate (Adequate)
[2024-01-06 12:17] LABS: Anisocytosis 2+; Microcytosis 2+ (NORMAL); Schistocytes None Seen
[2024-01-06 12:22] VITALS: BP 120/75; PULSE 78; RESP 17; O2SAT 99
[2024-01-06 12:36] LABS: Reticulocyte Hemoglobin Conten 11.8 pg (28.2-36.6); Reticulocyte Percent 1.73 % (0.7-4.3); Reticulocytes Absolute 0.08 10^6/uL (0.02-0.10)
[2024-01-06 12:42] LABS: Iron 15 ug/dL (37-170)
[2024-01-06 12:52] LABS: Percent Iron Saturation 4 % (20-50)
[2024-01-06 12:54] LABS: Transferrin 235 mg/dL (206-381)
[2024-01-06 13:18] LABS: Ferritin 3.95 ng/mL (6.24-137)
== END 2024-01-06 12:36 | disposition home or self-care (01) ==
PROVIDERS: Emergency Provider Physician Assistant; PCP Physician Assistant
DX: G43.909 Migraine, unspecified, not intractable, without status migrainosus (principal); D64.9 Anemia, unspecified; E28.2 Polycystic ovarian syndrome
CPT/HCPCS: 36415; 80048; 82728; 83540; 83550; 84466; 85025; 85046; 85055; 96361; 96374; 96375; 99284; A9270; J1100; J1200; J1885; J2765; J7030

== ENCOUNTER 2025-08-11 15:33 | Emergency (ER) | payer SELFPAY ==
--- NOTE | ~2025-08-11 | CT_ITS ---
EXAMINATION: CT abdomen pelvis w con DATE: 08/11/2025 18:20 INDICATION: Left-sided abdominal pain TECHNIQUE: Computed tomography (CT) of the abdomen and pelvis was performed with 100 mL Omnipaque-350 intravenous contrast. Automated exposure control and iterative reconstruction technique were employed. The dose-length product was 1608.68 mGy-cm. COMPARISON: CT dated 11/26/2020 FINDINGS: Lung bases are clear. Heart size is normal. No pericardial or pleural effusion. Liver, spleen, pancreas and right adrenal gland are normal. No significant interval change in a 14 x 11 mm left adrenal nodule which given the interval stability is most consistent with an adenoma. Bilateral kidneys are normal. Bowels including the appendix are normal. Enlarged fibroid uterus with lobular margins which measures 19.6 x 16.4 x 12.4 cm. The endometrial complex is deviated towards the right by the largest fibroid in the left side of the uterus which measures up to 11 cm maximal transaxial diameter. Bladder is normal. Minimal likely physiologic free fluid in the pelvis. No abscess or free intraperitoneal gas. No pathologically enlarged abdominal or pelvic lymphadenopathy. Minimal to mild chronic appearing likely physiologic anterior wedging of T10-L1. IMPRESSION: 1. Enlarged fibroid uterus. No acute intra-abdominal/pelvic process. Reviewed, dictated and finalized at location A. ERY OPERATOR
[2025-08-11 15:41] VITALS: BP 130/94; PULSE 101; RESP 20; TEMP 36.4; O2SAT 100
--- OUTSIDE RECORDS SUMMARY | 2025-08-11 16:06 | XMS_ITS | Clinical Summary ---
Author Organization [facility] Address [address] [place] [address] Care Team Providers Care Commercial Teller Name Role Phone Unavailable Primary Care Provider Unavailabl e Source Comments [facility],non-owned Affiliates and Associated Physician Practices is amultiple site organization consisting of ambulatory clinics and hospital sitesin [place], [place], [place] and [place]. This disclosure is being madepursuant to the Care Everywhere program and may not contain all information available regarding this patient. Last updated 18.[facility] [employer] Social History Tobacco Use Types Packs/Day Years Used Date Smoking Tobacco: Never Assessed Comments Unknown Sex and Gender Information Value Date Recorded Sex Assigned at Not on file Legal Sex Female 3:14 PM CDT Gender Identity Not on file Sexual Orientation Not on file Plan of Treatment Health Maintenance Due Date Last Done Comments HIV SCREENING 2010 HEPATITIS C SCREENING 08/25/2013 DTAP/TDAP/TD VACCINES (1 - Tdap) 2014 HEPATITIS B VACCINE (1 of 3 - 19+ 3-dose series) 2014 PAP SMEAR 2016 HPV VACCINE (1 - 3-dose SCDM series) 2022 DEPRESSION SCREENING 08/25/2024 COVID-19 VACCINE (1 - 2024-2 6 season) 2025 INFLUENZA VACCINE (#1) 2025 ZOSTER VACCINE (1 of 2) 2045 HIB VACCINE Aged Out No longer eligi ble based on patient's age to complete this topic MENINGOCOCCAL (Group B) VACC INE SHARED DECISION-MAKING Aged Out No longer eligibl e based on patient's age to complete this topic MENINGOCOCCAL GROUPS A/C/Y/W VACCINE Aged Out No longer eligible b ased on patient's age to complete this topic PNEUMOCOCCAL VACCINE Aged Out No long er eligible based on patient's age to complete this topic
--- NOTE | 2025-08-11 16:18 | ED_ITS ---
HPI - Abdominal Pain General Chief Complaint: Abdominal Pain <Rebeca Denise PA-C - Last Filed: 08/12/25 17:06> Stated Complaint: L abd pain and vag bleeding <Rebeca Denise PA-C - Last Filed: 08/12/25 17:06> Time Seen by Provider: 08/11/25 16:18 <Rebeca Denise PA-C - Last Filed: 08/12/25 17:06> Focused HPI: This is a 29 year old female that presents to the ER for left upper abdominal pain. Reports radiation into the lower abdomen. Reports left flank pain. Reports vaginal bleeding. Reports some nausea. Denies fever, vomiting, diarrhea, dysuria, hematuria. GENERAL: Uncomfortable, well-nourished, and in no acute distress. HEAD: Normocephalic, atraumatic. CHEST: Clear to auscultation. ?No respiratory distress. HEART: Regular rate and rhythm.? NEURO: ?Alert and oriented x3. Patient screened in triage and initial orders placed.? ?Additional care and disposition to be based upon?diagnostic testing and treatment. <Rebeca Denise PA-C - Last Filed: 08/12/25 17:06> History of Present Illness HPI narrative: Agree with HPI. Patient has known history of uterine fibroids. < Richard Valiente DO - Last Filed: 08/14/25 10:03> Related Data Allergies/Adverse Reactions: Allergies Allergy/AdvReac Type Severity Reaction Status Date / Time No Known Allergies Allergy Verified 08/11/25 15:46 <Rebeca Denise PA-C - Last Filed: 08/12/25 17:06> Review of Systems 2 Review of Systems: All systems reviewed & are unremarkable except as noted in HPI and below <Rebeca Denise PA-C - Last Filed: 08/12/25 17:06> PMFSH Past Medical History Medical History: Medical History Polycystic ovarian syndrome Uterine fibroid <Rebeca Denise PA-C - Last Filed: 08/12/25 17:06> Surgical History Surgical History: Surgical History No history of previous surgery <Rebeca Denise PA-C - Last Filed: 08/12/25 17:06> Social History Social History: Social History Smoking status: Never smoker Gender identity (if verbalized by the patient): Female <Rebeca Denise PA-C - Last Filed: 08/12/25 17:06> Exam 2 Narrative: APPEARANCE: No acute distress, nontoxic, resting in bed EYES: EOMI HEENT: Normocephalic, atraumatic, OMM RESPIRATORY: No respiratory distress Clear to auscultation bilaterally with no rhonchi wheezing or rales. CARDIOVASCULAR: Regular rate and rhythm without murmurs rubs or gallops. ABDOMINAL: Soft, tenderness to palpation suprapubic and left lower quadrant without rebound or guarding MUSCULOSKELETAl: Moves all extremities. No clubbing, cyanosis or edema. NEURO: Awake and alert. Following commands, speech normal, no focal deficits SKIN:: Warm, dry. No rashes lesions or abrasions PSYCHIATRIC: Normal affect/mood, <Richard Valiente DO - Last Filed: 08/14/25 10:03> Course Vital Signs Vital signs: Vital Signs Temperature 97.6 F 08/11/25 15:41 Pulse Rate 101 H 08/11/25 15:41 Respiratory Rate 20 08/11/25 15:41 Blood Pressure 130/94 H 08/11/25 15:41 Pulse Oximetry 100 08/11/25 15:41 Oxygen Delivery Room Air 08/11/25 15:41 Temperature 97.6 F 08/11/25 15:41 Pulse Rate 101 H 08/11/25 15:41 Respiratory Rate 20 08/11/25 15:41 Blood Pressure 130/94 H 08/11/25 15:41 Pulse Oximetry 100 08/11/25 15:41 Oxygen Delivery Room Air 08/11/25 15:41 <Rebeca Denise PA-C - Last Filed: 08/12/25 17:06> Vital Signs Temperature 97.6 F 08/11/25 15:41 Pulse Rate 101 H 08/11/25 15:41 Respiratory Rate 20 08/11/25 15:41 Blood Pressure 130/94 H 08/11/25 15:41 Pulse Oximetry 100 08/11/25 15:41 Oxygen Delivery Room Air 08/11/25 15:41 Temperature 97.6 F 08/11/25 15:41 Pulse Rate 101 H 08/11/25 15:41 Respiratory Rate 20 08/11/25 15:41 Blood Pressure 130/94 H 08/11/25 15:41 Pulse Oximetry 100 08/11/25 15:41 Oxygen Delivery Room Air 08/11/25 15:41 <Richard Valiente DO - Last Filed: 08/14/25 10:03> [facility] MDM Narrative Medical decision making narrative: 29-year-old female Presenting for abdominal pain and vaginal. On initial evaluation patient was in no acute distress afebrile, hemodynamic stable. Differentials include but are not limited to: , ovarian cyst, ovarian torsion, uterine fibroid, PID, UTI, urinary retention, ureterolithiasis, constipation, appendicitis, enterocolitis, colitis, cancer Notable exam findings: Tenderness palpation to the suprapubic and left lower quadrant, no peritoneal signs I personally reviewed the patient's lab result. Notable lab findings: Mild leukocytosis at 11.8, anemic at 8.6 which is about her baseline. CMP without significant abnormality. I personally reviewed the patient's images and interpret as follows: CT abdomen/pelvis showed an enlarged fibroid uterus without acute abnormalities Patient was given Tylenol with minimal improvement her symptoms. She was offered Toradol declined this time. Suspect that her symptoms are related to her fibroids, there may be an underlying endometriosis as well. Because of this, she was advised follow-up with OBGYN for further evaluation and management. Patient was agreeable to this plan. Given strict return precautions. <Richard Valiente DO - Last Filed: 08/14/25 10:03> Differential Diagnosis Differential Diagnosis: fibroid, endometriosis, UTI, pyelonephritis, diverticulitis, kidney stone <Rebeca Denise PA-C - Last Filed: 08/12/25 17:06> Lab Data Result diagrams: 08/11/25 16:46 08/11/25 16:46 <Rebeca Denise PA-C - Last Filed: 08/12/25 17:06> Labs: Lab Results 08/11/25 08/11/2508/11/25 Range/Units 16:46 17:22 17:37 WBC 11.8 H (4.5-10.0) K/mm3 RBC 5.47 H (4.2-5.4) M/mm3 Hgb 8.6 L (12.0-15.0) g/dL Hct 33.4 L (37.0-47.0) % MCV 61.1 L (80-100) fl MCH 15.7 L (26-34) pg MCHC 25.7 L (32-36) g/dl RDW 24.7 H (11.5-14.5) % Plt Count 304 (150-375) k/mm3 MPV TNP Immature Gran % (Auto) 0.3 (0-0.5) % Neut % (Auto) 75.5 H (45.5-73.1) % Lymph % (Auto) 16.4 L (18.3-44.2) % [place] % (Auto) 6.6 (2.6-8.5) % Eos % (Auto) 0.9 (0-4.4) % Baso % (Auto) 0.3 (0.2-1.2) % Lymph # (Auto) 1.94 (0.9-3.2) K/mm3 [place] # (Auto) 0.8 H (0.1-0.6) K/mm3 Eos # (Auto) 0.1 (0-0.3) K/mm3 Baso # (Auto) 0.0 (0.0-0.1) K/mm3 Abs Immat Gran (auto) 0.04 H (0.00-0.031) K/mm3 Absolute Neuts (auto) 8.9 H (1.3-6.7) K/mm3 Absolute Nucleated RBC 0.000 (0.0-0.012) K/mm3 Band Neutrophils % Not Reportable Nucleated RBC % 0.0 (0.0-0.2) % Platelet Estimate Adequate (Adequate) Large Platelets Present Giant Platelets Present % Immature Plt Fraction 8.1 (0.9-11.2) % Hypochromasia 2+ Microcytosis 2+ (NORMAL) Tear Drop Cells Occasional Ovalocytes 1+ Schistocytes None seen Sodium 134 L (137-145) mmol/L Potassium 3.7 (3.4-5.0) mmol/L Chloride 104 (98-107) mmol/L Carbon Dioxide 23 (22-30) mmol/L Anion Gap 7 (4-12) mmol/L BUN 7 (7-17) mg/dL Creatinine 0.62 L (0.7-1.0) mg/dL Estim Creat Clear Calc 146 ml/min Estimated GFR > 60 (59 - ) Glucose 83 (65-110) mg/dL Calcium 9.2 (8.4-10.2) mg/dL Total Bilirubin 0.4 (0.2-1.3) mg/dL AST 20 (14-36) U/L ALT 10 (6-35) U/L Alkaline Phosphatase 79 (38-126) U/L Total Protein 7.9 (6.3-8.2) g/dL Albumin 4.2 (3.5-5.1) g/dL Lipase 48 (23-300) U/L Urine Color Dark jose c (Yellow) Urine Appearance Clear (Clear) Urine pH 5.0 (5.0-9.0) Ur Specific [place] 1.027 (1.001-1.035) Urine Protein 3+ H (Negative) mg/dL Urine Glucose (UA) Negative (Negative) mg/dL Urine Ketones 1+ H (Negative) mg/dL Ur Blood (Man) 3+ H (Negative) Urine Nitrate Negative (Negative) Urine Bilirubin Negative (Negative) Urine Urobilinogen 1.0 (<2.0) mg/dL Add Ur Microanalysis Reviewed Leukocyte Esterase Rfl 1+ H (Negative) REECE/UL Urine RBC >100 H (0-2) /hpf Urine WBC >100 H (0-3) /hpf Ur Squamous Epith Cells None seen (Few) /hpf Urine Bacteria 2+ H /hpf Urine Casts 0-2 Urine Yeast (Budding) Present H (None) /hpf POC Urine HCG, Qual Negative (Negative) <Rebeca Denise PA-C - Last Filed: 08/12/25 17:06> Lab Results 08/11/25 08/11/25 08/11/25 Range/Units 16:46 17:22 17:37 WBC 11.8 H (4.5-10.0) K/mm3 RBC 5.47 H (4.2-5.4) M/mm3 Hgb 8.6 L (12.0-15.0) g/dL Hct 33.4 L (37.0-47.0) % MCV 61.1 L (80-100) fl MCH 15.7 L (26-34) pg MCHC 25.7 L (32-36) g/dl RDW 24.7 H (11.5-14.5) % Plt Count 304 (150-375) k/mm3 MPV TNP Immature Gran % (Auto) 0.3 (0-0.5) % Neut % (Auto) 75.5 H (45.5-73.1) % Lymph % (Auto) 16.4 L (18.3-44.2) % [place] % (Auto) 6.6 (2.6-8.5) % Eos % (Auto) 0.9 (0-4.4) % Baso % (Auto) 0.3 (0.2-1.2) % Lymph # (Auto) 1.94 (0.9-3.2) K/mm3 [place] # (Auto) 0.8 H (0.1-0.6) K/mm3 Eos # (Auto) 0.1 (0-0.3) K/mm3 Baso # (Auto) 0.0 (0.0-0.1) K/mm3 Abs Immat Gran (auto) 0.04 H (0.00-0.031) K/mm3 Absolute Neuts (auto) 8.9 H (1.3-6.7) K/mm3 Absolute Nucleated RBC 0.000 (0.0-0.012) K/mm3 Band Neutrophils % Not Reportable Nucleated RBC % 0.0 (0.0-0.2) % Platelet Estimate Adequate (Adequate) Large Platelets Present Giant Platelets Present % Immature Plt Fraction 8.1 (0.9-11.2) % Hypochromasia 2+ Microcytosis 2+ (NORMAL) Tear Drop Cells Occasional Ovalocytes 1+ Schistocytes None seen Sodium 134 L (137-145) mmol/L Potassium 3.7 (3.4-5.0) mmol/L Chloride 104 (98-107) mmol/L Carbon Dioxide 23 (22-30) mmol/L Anion Gap 7 (4-12) mmol/L BUN 7 (7-17) mg/dL Creatinine 0.62 L (0.7-1.0) mg/dL Estim Creat Clear Calc 146 ml/min Estimated GFR > 60 (59 - ) Glucose 83 (65-110) mg/dL Calcium 9.2 (8.4-10.2) mg/dL Total Bilirubin 0.4 (0.2-1.3) mg/dL AST 20 (14-36) U/L ALT 10 (6-35) U/L Alkaline Phosphatase 79 (38-126) U/L Total Protein 7.9 (6.3-8.2) g/dL Albumin 4.2 (3.5-5.1) g/dL Lipase 48 (23-300) U/L Urine Color Dark jose c (Yellow) Urine Appearance Clear (Clear) Urine pH 5.0 (5.0-9.0) Ur Specific [place] 1.027 (1.001-1.035) Urine Protein 3+ H (Negative) mg/dL Urine Glucose (UA) Negative (Negative) mg/dL Urine Ketones 1+ H (Negative) mg/dL Ur Blood (Man) 3+ H (Negative) Urine Nitrate Negative (Negative) Urine Bilirubin Negative (Negative) Urine Urobilinogen 1.0 (<2.0) mg/dL Add Ur Microanalysis Reviewed Leukocyte Esterase Rfl 1+ H (Negative) REECE/UL Urine RBC >100 H (0-2) /hpf Urine WBC >100 H (0-3) /hpf Ur Squamous Epith Cells None seen (Few) /hpf Urine Bacteria 2+ H /hpf Urine Casts 0-2 Urine Yeast (Budding) Present H (None) /hpf POC Urine HCG, Qual Negative (Negative) <Richard Valiente DO - Last Filed: 08/14/25 10:03> Imaging Data Radiologist's impression: ITS Impressions Abdomen/Pelvis CT 08/11/25 18:26 IMPRESSION: 1. Enlarged fibroid uterus. No acute intra-abdominal/pelvic process. <Rebeca Denise PA-C - Last Filed: 08/12/25 17:06> ITS Impressions Abdomen/Pelvis CT 08/11/25 18:26 IMPRESSION: 1. Enlarged fibroid uterus. No acute intra-abdominal/pelvic process. <DO Darien Nye Last Filed: 08/14/25 10:03> Discharge Plan Discharge Clinical Impression: Abdominal pain, Uterine fibroid <Rebeca Denise PA-C - Last Filed: 08/12/25 17:06> Patient Disposition: Home <Rebeca Denise PA-C - Last Filed: 08/12/25 17:06> Condition: Stable <Rebeca Denise PA-C - Last Filed: 08/12/25 17:06> Instructions: Antibiotic Form, Abdominal Pain (ED) <Rebeca Denise PA-C - Last Filed: 08/12/25 17:06> Additional Instructions: Your pain may be related to her fibroids, and also may be due to an underlying endometriosis. You should follow-up with Dr. [facility], Care Support Representative in the next week for re-evaluation. Return to the ED for any new or worsening symptoms. <Rebeca Denise PA-C - Last Filed: 08/12/25 17:06> Patient Language: Cymro <Rebeca Denise PA-C - Last Filed: 08/12/25 17:06> Prescriptions: No Action ferrous sulfate 325 mg (65 mg iron) tablet 325 mg PO DAILY Qty: 30 0RF pantoprazole [Protonix] 40 mg granules for susp in packet 40 mg PO DAILY Qty: 30 0RF <Rebeca Denise PA-C - Last Filed: 08/12/25 17:06> Follow-up/Referrals: Jadiel [facility] MD [Physician, BUILDING SERVICES SUPERVISOR] Feli,JOSEPH Alonso [Primary Care Provider, Family Practice] <Rebeca Denise PA-C - Last Filed: 08/12/25 17:06> Stand Alone Forms: Work/School Release IP <NEMO Avila Last Filed: 08/12/25 17:06>
[2025-08-11 16:57] LABS: Hematocrit 33.4 % (37.0-47.0); Hemoglobin 8.6 g/dL (12.0-15.0); Immature Granulocyte Percent A 0.3 % (0-0.5); Immature Platelet Fraction Pct 8.1 % (0.9-11.2); Lymphocytes Absolute Auto 1.94 K/mm3 (0.9-3.2); Mean Corpuscular HGB Conc 25.7 g/dl (32-36); Mean Corpuscular Hemoglobin 15.7 pg (26-34); Mean Corpuscular Volume 61.1 fl (80-100); Nucleated Red Blood Cells Absolute Auto 0.000 K/mm3 (0.0-0.012); Nucleated Red Blood Cells Perc 0.0 % (0.0-0.2); Platelet Count Result 304 k/mm3 (150-375); Red Blood Count 5.47 M/mm3 (4.2-5.4); White Blood Count 11.8 K/mm3 (4.5-10.0)
[2025-08-11 17:03] LABS: Alanine Aminotransferase 10 U/L (6-35); Albumin Level 4.2 g/dL (3.5-5.1); Alkaline Phosphatase 79 U/L (38-126); Anion Gap 7 mmol/L (4-12); Aspartate Amino Transferase 20 U/L (14-36); Bilirubin,Total 0.4 mg/dL (0.2-1.3); Blood Urea Nitrogen 7 mg/dL (7-17); Calcium 9.2 mg/dL (8.4-10.2); Carbon Dioxide 23 mmol/L (22-30); Chloride 104 mmol/L (98-107); Estimated CRCL calculation 146 ml/min; Estimated Glomerular Filt Rate > 60; Glucose 83 mg/dL (65-110); Lipase 48 U/L (23-300); Potassium 3.7 mmol/L (3.4-5.0); Sodium 134 mmol/L (137-145); Total Protein 7.9 g/dL (6.3-8.2)
[2025-08-11 17:21] LABS: Hypochromasia 2+; Microcytosis 2+ (NORMAL)
[2025-08-11 17:22] LABS: Ovalocytes 1+
[2025-08-11] MEDS: ACETAMINOPHEN 500 MG TABLET 1000 MG PO (17:24)
[2025-08-11] MEDS: SODIUM CHLORIDE 0.9% IV 1,000 ML 999 ML IV CONT (17:24)
[2025-08-11 17:25] LABS: Giant Platelets Present
[2025-08-11 17:26] LABS: Schistocytes None Seen; Tear Drop Cells Occasional
[2025-08-11 17:39] LABS: BEDSIDEPREGUCG Negative (Negative)
--- NOTE | 2025-08-11 17:52 | ECG_ITS ---
Test Date: 2025-08-11 17:58:38 Measurements Intervals [place] Rate: 86 P: 40 AL: 168 QRS: 35 QRSD: 82 T: 32 QT: 353 QTc: 423 Interpretive Statements SINUS RHYTHM MINIMAL Q WAVES- HIGH LATERAL LEADS BORDERLINE ECG No previous ECG available for comparison Electronically Signed On 08-11-2025 18:46:23 [employer] [place] by Cezar Gallardo D.O.
[2025-08-11 17:56] LABS: Add Urine Microscopic? YES; Appearance Urine Clear (Clear); Budding Yeast Urine Present /hpf; Glucose Urine UA Negative (Negative); Leukocyte Esterase Ur 1+ LEU/UL (Negative); Need Manual Microscopic Reviewed; Nitrate Urine Negative (Negative); Non Pathogenic Casts 0-2; Specific Grav Ur 1.027 (1.001-1.035)
[2025-08-11] MEDS: KETOROLAC 30 MG/ML VIAL (*BKC) IV PUSH (19:04)
== END 2025-08-11 19:11 | disposition home or self-care (01) ==
PROVIDERS: Physician Assistant; Emergency Provider Student in an Organized Health Care Education/Training Program; PCP Physician Assistant
DX: R10.12 Left upper quadrant pain (principal); D25.9 Leiomyoma of uterus, unspecified; E28.2 Polycystic ovarian syndrome; R94.31 Abnormal electrocardiogram [ECG] [EKG]
CPT/HCPCS: 36415; 74177; 80053; 81001; 81025; 83690; 85025; 85055; 87086; 93005; 96361; 96374; 99284; A9270; J1885; J7030; Q9967